=== PATIENT | male | born 1995 | race Caucasian/White ===

== ENCOUNTER 2019-06-17 08:34 | Emergency (ER) | payer BC, MEDICAID ==
[2019-06-17] MEDS: DEXAMETHASONE 10 MG/ML 1 ML INJ IM (08:58)
[2019-06-17] MEDS: IPRATROPIUM (NEB) 0.5 MG/2.5 ML AMP HHN (09:04)
[2019-06-17] MEDS: ALBUTEROL 0.083% (NEB) 2.5 MG/3 ML AMP HHN (09:04)
== END 2019-06-17 10:39 | disposition home or self-care (01) ==
LOC: FTE 10:39
DX: J06.9 Acute upper respiratory infection, unspecified (principal)
CPT/HCPCS: 71045; 94664; 96372; 99284-25